=== PATIENT | female | born 1975 | race Caucasian/White ===

== ENCOUNTER 2018-04-07 11:56 | Emergency (ER) | payer BC, OTHER ==
[2018-04-07] MEDS ORDERED: Ketorolac Tromethamine 30 MG/ML VIAL ONE (12:38)
[2018-04-07] MEDS ORDERED: diphenhydrAMINE 50 MG/ML VIAL ONE (12:38)
[2018-04-07] MEDS ORDERED: Prochlorperazine 10 MG/2 ML VIAL ONE (12:38)
[2018-04-07] MEDS ORDERED: Oxymetazoline HCl 0.05% ( 15 ML ) ONE (12:38)
[2018-04-07] MEDS ORDERED: Promethazine 25 MG TAB ONE (12:38)
== END 2018-04-07 15:13 | disposition home or self-care (01) ==
LOC: SCSER 11:56
DX: R51 Headache (principal); Z79.899 Other long term (current) drug therapy
CPT/HCPCS: 96365; 96375; J0780; J1200; J1885